=== PATIENT | male | born 1945 ===

== ENCOUNTER 2020-05-13 11:49 | Day surgery (SDC) | payer MEDICARE ==
[~2020-05-13] VITALS: Ht 182.9 cm; Wt 92.6 kg
--- NOTE | 2020-05-13 12:12 | NUR ---
PT ADMITTED TO [facility]. AGREES WITH PLANNED SURGERY. LUNG SOUNDS CLEAR.
--- NOTE | 2020-05-13 18:33 | NUR ---
PT ARRIVED TO THE UNIT AT APPROXIMATELY 1805. PT IS ALERT AND ORIENTED AT TIME OF ARRIVAL TO THE ROOM. HE DENIES PAIN. PT IS ABLE TO MOVE HIS LEGS BUT CANNOT MOVE BELOW HIS KNEE OR WIGGLE HIS TOES. HE ALSO HAS DECREASED SENSATION TO BLE R/T SPINAL ANESTHESIA. PT HAS AQUACEL DRESSING ON HIS R HIP, C/D/I. VSS. WILL MONITOR UNTIL REPORT TO ONCOMING RN.
[2020-05-14 04:20] LABS: BASOPHILS ABSOLUTE AUTO 0.01 K/mm3 (0.00-0.23); BASOPHILS PERCENT AUTO 0 % (0-2); EOSINOPHILS PERCENT AUTO 0 % (0-6); Hematocrit 37.8 % (37.0-53.0); Hemoglobin 12.6 g/dL (13.5-17.5); IMMATURE GRAN ABSOLUTE AUTO 0.03 K/mm3 (0.00-0.10); IMMATURE GRAN PERCENT AUTO 0 % (0-1); LYMPHOCYTES ABSOLUTE AUTO 0.49 K/mm3 (0.84-5.20); LYMPHOCYTES PERCENT AUTO 4 % (21-46); MONOCYTES ABSOLUTE AUTO 0.79 K/mm3 (0.16-1.47); MONOCYTES PERCENT AUTO 7 % (4-13); Mean Corpuscular HGB 32.6 pg (26.0-34.0); Mean Corpuscular HGB Conc 33.3 g/dL (31.5-36.5); Mean Corpuscular Volume 98 fL (80-100); Mean Platelet Volume 11.3 fL (9.1-12.4); NEUTROPHILS ABSOLUTE AUTO 9.75 K/mm3 (1.96-9.15); NEUTROPHILS PERCENT AUTO 88 % (41-73); Platelet Count 165 K/mm3 (150-400); RDW Coefficient Variation 13.2 % (11.7-14.2); RDW Standard Deviation 47.4 fL (35.1-46.3); Red Blood Cell Count 3.86 M/mm3 (4.30-5.90); White Blood Cell Count 11.07 K/mm3 (4.00-11.30)
[2020-05-14 04:36] LABS: Anion Gap 6 mmol/L (6-16); Blood Urea Nitrogen 13 mg/dL (8-24); Bun/Creatinine Ratio 13.8 (12.0-20.0); CO2, Blood 23 mmol/L (21-32); Calcium, Blood 8.3 mg/dL (8.5-10.1); Chloride, Blood 108 mmol/L (98-108); Creatinine, Blood 0.94 mg/dL (0.60-1.20); Glomerular Filtration Rate >60 (60-); Glucose, Blood 140 mg/dL (70-99); Potassium, Blood 4.1 mmol/L (3.5-5.5); Sodium, Blood 137 mmol/L (136-145)
--- NOTE | 2020-05-14 05:12 | NUR ---
SHIFT SUMMARY AMBULATING IN HALLWAY WITH WALKER AND GAIT BELT ACCOMPANIED BY Tejal HAZEL CNA AT THIS TIME. HAS RESTED WELL FOR SEVERAL HOURS. RIGHT HIP AQUACEL INTACT, NO SHADOWING NOTED. HAS KEPT POLAR MARIA D IN PLACE. DENIES PAIN, DISCOMFORT, OR FURTHER NEEDS AT THIS TIME. SAFETY MEASURES IN PLACE. WILL CONTINUE TO MONITOR.
[2020-05-14] MEDS ORDERED: TRAM50 PO (09:02)
--- NOTE | 2020-05-14 11:44 | NUR ---
DISCHARGE PT WAS PROVIDED WRITTEN AND VERBAL DISCHARGE INSTRUCTIONS, HE REPORTED UNDERSTANDING. SCRIPT AND DRESSINGS ALSO PROVIDED. PT CLEARED THERAPY AND PAIN WAS MANAGED BEFORE DISCHARGE. VSS. WILL MONITOR UNTIL REPORT TO ONCOMING RN.
== END 2020-05-14 11:41 | disposition home or self-care (01) ==
LOC: ORSCMMR 11:49 → SURS 18:04 → ORSCMMR 05-14 11:41
PROVIDERS: Orthopaedic Surgery
PROC: 0SR90JA Replacement of Right Hip Joint with Synthetic Substitute, Uncemented, Open Approach (ICD-10-PCS; principal; 2020-05-13 14:45)
DX: M16.11 Unilateral primary osteoarthritis, right hip (principal)
CPT/HCPCS: 36415; 72170; 80048; 83735; 85025; 88300; 97116; 97162; 97530; A9270; A9270-GY; C1776; J0171; J0690; J0735; J1100; J1885; J2250; J2370; J2405; J2704; J2795; J3010; J7120